=== PATIENT | male | born 2005 | race Two or more races ===

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

== ENCOUNTER 2024-07-01 13:02 | Emergency (ER) | payer OTHER ==
[~2024-07-01] VITALS: Ht 172.7 cm; Wt 64.0 kg
[2024-07-01] MEDS ORDERED: DIPHENHYDRAMINE HCL 50 MG/ML VIAL 1ML ONE (18:51)
[2024-07-01] MEDS ORDERED: CEFTRIAXONE SODIUM 2,000 MG VIAL ONE (18:51)
[2024-07-01] MEDS ORDERED: METHYLPREDNISOLONE SOD SUCC 125 MG VIAL ONE (18:52)
[2024-07-01 20:03] LABS: EOS % 2.9 % (0.7-7.0); HEMATOCRIT 46.7 % (40.1-51.0); HEMOGLOBIN 15.8 g/dL (13.7-17.5); LYMPH % 25.6 % (19.3-53.1); MEAN CORPUSCULAR HEMOGLOBIN 27.6 pg (25.6-32.2); MONO % 4.4 % (4.7-12.5); NEUT % 66.5 % (34.0-71.1); PLATELET COUNT 237 K/uL (163-369); RED BLOOD COUNT 5.72 M/uL (4.63-6.08)
[2024-07-01 20:04] LABS: BASO % 0.3 % (0.1-1.2); EOS # 0.27 (0.04-0.54); LYMPH # 2.38 (1.18-3.74); MONO # 0.41 (0.24-0.82); NEUT # 6.17 (1.56-6.13)
[2024-07-01] MEDS ORDERED: DUI500 PO (21:41)
[2024-07-01] MEDS ORDERED: ORAPRED ODT15 MG PO (21:41)
[2024-07-01] MEDS ORDERED: ALLEGRA ALLERG180 MG PO (21:42)
== END 2024-07-01 21:55 | disposition home or self-care (01) ==
LOC: ER 13:02 → EMR PED 13:21 → ER 13:21 → EMR PED 21:55
PROVIDERS: Emergency Medicine Pediatric Emergency Medicine
DX: S61.051A Open bite of right thumb without damage to nail, initial encounter (principal); W64.XXXA Exposure to other animate mechanical forces, initial encounter; Y93.89 Activity, other specified; Y92.89 Other specified places as the place of occurrence of the external cause; Y99.8 Other external cause status